=== PATIENT | male | born 1990 | race Caucasian/White ===

== ENCOUNTER 2017-06-25 10:59 | Emergency (ER) | payer BC, SELFPAY ==
[2017-06-25 11:16] LABS: #Basophils 0.1 thou/uL (0.0-0.2); #Eosinphils 0.4 thou/uL (0.0-0.7); #Lymphocytes 2.1 thou/uL (1.20-3.40); #Monocytes 0.8 thou/uL (0.11-0.59); #Neutrophils 5.9 thou/uL (1.40-6.50); %Eosinophils 3.9 % (0.0-10.0); %Lymphocytes 22.7 % (21.0-51.0); %Monocytes 8.2 % (0.0-10.0); %Neutrophils 64.3 % (42.0-75.0); Hemoglobin 16.2 g/dL (14.0-18.0); Mean Corpuscular HGB CONC 33.7 g/dL (32.0-36.0); Mean Corpuscular Hemoglobin 28.5 pg (27.0-31.0); Mean Corpuscular Volume 84.6 fl (80.0-94.0); Mean Platelet Volume 7.1 fL (7.4-10.4); Platelet Count 249 thou/uL (130-400); Red Blood Cell (RBC) Count 5.67 mill/uL (4.70-6.10); White Blood Cell (WBC) Count 9.2 thou/uL (4.8-10.8)
[2017-06-25 11:22] LABS: INR-International Normal Ratio 0.9; Prothrombin Time 12.7 SEC (12.0-14.7)
[2017-06-25 11:32] LABS: ALT (SGPT) 22 U/L (8-55); AST (SGOT) 19 U/L (5-34); Albumin 4.5 g/dL (3.5-5.0); Alkaline Phosphatase 63 U/L (40-150); Anion Gap 13 mmol/L (10-20); BUN (Urea Nitrogen) 16 mg/dL (8.9-20.6); Calc. Creatinine Clearance 0 mL/min (70-130); Calcium 9.4 mg/dL (7.8-10.44); Carbon Dioxide 24 mmol/L (22-29); Chloride 105 mmol/L (98-107); Estimated GFR-MDRD 89; Globulin 3.3 g/dL (2.4-3.5); Glucose 116 mg/dL (70-105); Potassium 4.1 mmol/L (3.5-5.1); Protein, Total 7.8 g/dL (6.0-8.3); Sodium 138 mmol/L (136-145)
[2017-06-25 11:34] LABS: CKMB 0.8 ng/mL (0-6.6); Troponin I Less than 0.010 ng/mL (< 0.028)
[2017-06-25 12:12] LABS: Amphetamine Not Detected (NotDetected); Barbiturates Screen Not Detected (NotDetected); Benzodiazepine Screen Not Detected (NotDetected); Cocaine Metabolite Screen Not Detected (NotDetected); Medtox Control Line Valid? VALID (VALID); Methadone Not Detected (NotDetected); Methamphetamine Not Detected (NotDetected); Opiate Screen Not Detected (NotDetected); Oxycodone Screen Not Detected (NotDetected); Phencyclidine (PCP) Not Detected (NotDetected); THC/Cannabinoid Screen Not Detected (NotDetected); Tricyclic Screen Not Detected (NotDetected)
--- NOTE | 2017-06-25 13:06 | CT ---
CT BRAIN WITHOUT CONTRAST: Date: 06/25/17 HISTORY: Emergency exam. Possible stroke. COMPARISON: None. FINDINGS: No acute territorial infarct or hemorrhage. No midline shift or mass effect. Calvarium is intact. Par anasal sinuses and mastoids are clear. Orbits unremarkable. IMPRESSION: No acute intracranial abnormality. POS: [facility]
--- NOTE | 2017-06-25 13:35 | RAD ---
CHEST 1 VIEW: Date: 06/25/17 HISTORY: Chest pain. COMPARISON: Chest 1 view dated 03/28/16. FINDINGS: Lungs are clear. Lungs are hypoinflated. No pneumothorax or effusion. Cardiac silhouette and mediasti nal contours are similar. IMPRESSION: Lung hypoinflation. No evidence for consolidation. POS: [facility]
== END 2017-06-25 12:44 | disposition home or self-care (01) ==
LOC: BURERS 10:59
DX: G47.30 Sleep apnea, unspecified (principal); R53.83 Other fatigue; E66.9 Obesity, unspecified; I48.91 Unspecified atrial fibrillation; I10 Essential (primary) hypertension; F17.210 Nicotine dependence, cigarettes, uncomplicated; Z79.899 Other long term (current) drug therapy
CPT/HCPCS: 36415; 36416; 70450; 71010; 80053; 80306; 80307; 82553; 84484; 85025; 85610; 93005; 96360

== ENCOUNTER 2017-08-21 15:42 | Emergency (ER) | payer BC, SELFPAY | END 2017-08-21 16:20 | disposition home or self-care (01) | LOC: BURERS 15:42 | DX: S46.912A Strain of unspecified muscle, fascia and tendon at shoulder and upper arm level, left arm, initial encounter (principal); I10 Essential (primary) hypertension; E66.9 Obesity, unspecified; F17.210 Nicotine dependence, cigarettes, uncomplicated; V84.9XXA Unspecified occupant of special agricultural vehicle injured in nontraffic accident, initial encounter | CPT/HCPCS: 99283 ==

== ENCOUNTER 2017-09-19 20:21 | Emergency (ER) | payer SELFPAY ==
[2017-09-19] MEDS ORDERED: Ketorolac Tromethamine 30 MG/ML VIAL ONE (20:51)
[2017-09-19] MEDS ORDERED: diphenhydrAMINE 50 MG/ML VIAL ONE (20:51)
[2017-09-19] MEDS ORDERED: Metoclopramide HCl 10 MG/2 ML VIAL ONE (20:51)
== END 2017-09-19 21:23 | disposition home or self-care (01) ==
LOC: BURERS 20:21
DX: G43.909 Migraine, unspecified, not intractable, without status migrainosus (principal); I10 Essential (primary) hypertension; E66.9 Obesity, unspecified; F17.210 Nicotine dependence, cigarettes, uncomplicated; I48.91 Unspecified atrial fibrillation
CPT/HCPCS: 96365; 96375; J1200; J1885; J2765

== ENCOUNTER 2018-02-05 09:02 | Emergency (ER) | payer BC, SELFPAY ==
--- NOTE | 2018-02-05 19:57 | RAD ---
RIGHT KNEE FOUR VIEWS: 02/05/2018 FINDINGS: No acute fracture is seen. There is reticulation of the soft tissues anterior to the knee, suggestin g soft tissue damage and edema. There is no large joint effusion, though there might be a small one. The joint space appears normal, as do the articular surfaces. IMPRESSION: No acute bony finding. POS: [facility]
== END 2018-02-05 09:44 | disposition home or self-care (01) ==
LOC: BURERS 09:02
DX: S83.91XA Sprain of unspecified site of right knee, initial encounter (principal); I48.91 Unspecified atrial fibrillation; I10 Essential (primary) hypertension; E66.9 Obesity, unspecified; F17.210 Nicotine dependence, cigarettes, uncomplicated; W18.30XA Fall on same level, unspecified, initial encounter; Y93.02 Activity, running

== ENCOUNTER 2018-05-14 19:02 | Emergency (ER) | payer BC, SELFPAY ==
[2018-05-14] MEDS ORDERED: Benzonatate 100 MG CAP ONE (19:49)
[2018-05-14] MEDS ORDERED: AMOXicillin 250 MG CAP ONE (19:49)
== END 2018-05-14 19:55 | disposition home or self-care (01) ==
LOC: BURERS 19:02
DX: J20.9 Acute bronchitis, unspecified (principal); F17.210 Nicotine dependence, cigarettes, uncomplicated; I10 Essential (primary) hypertension; I48.91 Unspecified atrial fibrillation; E66.9 Obesity, unspecified
CPT/HCPCS: 87804; 99283